=== PATIENT | female | born 1955 | race Caucasian/White ===

== ENCOUNTER 2022-12-02 18:14 | Emergency (ER) | payer OTHER ==
[2022-12-02] MEDS ORDERED: Sodium Chloride 0.9% 10 ML Syringe FLUSH PRN (18:20)
[2022-12-02] MEDS ORDERED: HYDROmorphone 1 MG/ML Syringe IVPUSH ONE (18:57)
[2022-12-02] MEDS ORDERED: Ondansetron 4 MG/2 ML SDV IVPUSH ONE (19:01)
[2022-12-02 19:03] LABS: ANION GAP 15.4 mmol/L (5-15)
[2022-12-02] MEDS ORDERED: Iopamidol 755 Mg/ML 100 ML Bottle IV ONE (19:14)
[2022-12-02] MEDS ORDERED: Sodium Chloride 0.9% 50 ML IV SCH (19:15)
[2022-12-02] MEDS ORDERED: Sodium Chloride 0.9% 1,000 ML IV ONE ×2 (19:58→21:11)
== END 2022-12-02 22:20 | disposition home or self-care (01) ==
LOC: KA.ED 18:14
DX: K52.9 Noninfective gastroenteritis and colitis, unspecified (principal); E03.9 Hypothyroidism, unspecified; Z88.5 Allergy status to narcotic agent; Z79.899 Other long term (current) drug therapy
CPT/HCPCS: 36415; 71045; 74177; 80053; 81003; 83605; 83690; 84484; 85025; 93005; 93010; 96361; 96374; 96375; 99284; 99284-25; J1170; J2405; J3490; J7030; Q9967